=== PATIENT | male | born 1975 | race Caucasian/White ===

== ENCOUNTER 2018-08-11 08:50 | Outpatient (CLI) | payer OTHER | END 2018-08-11 08:51 | disposition home or self-care (01) | LOC: LAB 08:50 | DX: G35 Multiple sclerosis (principal) ==

== ENCOUNTER 2018-08-19 07:21 | Outpatient (CLI) | payer OTHER | END 2018-08-19 07:22 | disposition home or self-care (01) | LOC: RAD 07:21 ==